=== PATIENT | female | born 1980 | race Caucasian/White ===

== ENCOUNTER → 2019-03-07 | Outpatient (CLI) | payer BC ==
[2019-03-07 16:03] LABS: T4, Free (Free Thyroxine) 1.1 ng/dL (0.80-1.80)
== END | disposition home or self-care (01) ==
LOC: LABWHC1 09:21
PROVIDERS: ATTEND Physician Assistant Medical
DX: M79.604 Pain in right leg (principal); N92.0 Excessive and frequent menstruation with regular cycle
CPT/HCPCS: 36415; 83001; 84439; 84443; 85379

== ENCOUNTER → 2022-11-26 | Outpatient (CLI) | payer BC ==
--- NOTE | 2022-11-29 08:25 | MM ---
Reason for Exam: Screening (asymptomatic). Last screening mammogram was performed 12 month(s) ago. Patient History: Menarche at age 12. Patient has no children. Maternal grandmother had breast cancer, age 40. Maternal aunt had breast cancer, age 40. Last menstrual period: 11/08/2022 Risk Values: Eliane 5 year model risk: 0.7%. NCI Lifetime model risk: 12.0%. Prior Study Comparison: 02/14/2019 Bilateral Screening Mammogram, [facility]. 11/19/2021 Bilateral Screening Mammogram, [facility]. Tissue Density: The breast tissue is heterogeneously dense. This may lower the sensitivity of mammography. Findings: Analyzed By CAD. Asymmetric nodular density 7 cm from the nipple outer right cc view. Additional views are clear of a spot CC view as well as a true lateral view. No suspicious calcifications seen. No masses left breast. Overall Assessment: Incomplete: need additional imaging evaluation, BI-RAD 0 Management: Diagnostic Mammogram of the right breast. A clinical breast exam by your physician is recommended on an annual basis and results should be correlated with mammographic findings. Electronically signed and approved by: Rodolfo Daniels M.D. Radiologis
== END | disposition home or self-care (01) ==
LOC: RADMAMWWP 16:06
PROVIDERS: ATTEND Obstetrics & Gynecology
DX: Z12.31 Encounter for screening mammogram for malignant neoplasm of breast (principal); Z80.3 Family history of malignant neoplasm of breast
CPT/HCPCS: 77063; 77067

== ENCOUNTER → 2022-11-30 | Outpatient (CLI) | payer BC ==
--- NOTE | 2022-11-30 08:56 | MM ---
Reason for Exam: Additional evaluation requested from abnormal screening. Last screening mammogram was performed less than 1 month ago. Patient History: Menarche at age 12. Patient has no children. Maternal grandmother had breast cancer, age 40. Maternal aunt had breast cancer, age 40. Risk Values: Eliane 5 year model risk: 0.7%. NCI Lifetime model risk: 12.0%. Prior Study Comparison: 02/14/2019 Bilateral Screening Mammogram, [facility]. 11/19/2021 Bilateral Screening Mammogram, [facility]. 11/26/2022 Bilateral MG 3D screening mammo w/cad, [facility]. Tissue Density: Right: The breast tissue is heterogeneously dense. This may lower the sensitivity of mammography. Findings: Analyzed By CAD. No distinct new lesion persists on additional views. Overall Assessment: Negative, BI-RAD 1 Management: Screening Mammogram of both breasts in 1 year. A clinical breast exam by your physician is recommended on an annual basis and results should be correlated with mammographic findings. This exam should not preclude additional follow-up of suspicious palpable abnormalities. Results were given to the patient verbally at the time of exam. Electronically signed and approved by: Ed Mendoza M.D.
== END | disposition home or self-care (01) ==
LOC: RADMAMWWP 08:20
PROVIDERS: ATTEND Obstetrics & Gynecology
DX: R92.8 Other abnormal and inconclusive findings on diagnostic imaging of breast (principal); Z80.3 Family history of malignant neoplasm of breast
CPT/HCPCS: 77061; 77065

== ENCOUNTER → 2023-01-19 | Outpatient (CLI) | payer BC ==
[2023-01-19 20:38] LABS: ALT 23 U/L (8-44); AST 18 U/L (13-35); Albumin 4.3 d/dL (3.8-4.9); Albumin/Globulin Ratio 1.65 Ratio (1.60-3.17); Alkaline Phosphatase 60 U/L (41-126); Blood Urea Nitrogen 13.6 mg/dL (9.0-27.0); C Reactive Protein <0.30 mg/dL (0.00-0.80); Calcium 9.8 mg/dL (8.7-10.3); Carbon Dioxide 26.2 mmol/L (21.6-31.8); Chloride 104 mmol/L (96-109); Globulin 2.6 d/dL (1.6-3.3); Glucose 87 mg/dL (70-110); Potassium 4.4 mmol/L (3.5-5.5); Sodium 140 mmol/L (135-145); Total Bilirubin 0.3 mg/dL (0.3-1.2); Total Protein 6.9 d/dL (6.2-8.2)
[2023-01-19 20:53] LABS: Basophils # (A) 0.12 X 10*3/uL (0.00-0.10); Basophils % (A) 1.5 %; Eosinophils # (A) 0.11 X 10*3/uL (0.04-0.35); Eosinophils % (A) 1.4 %; HCT 39.4 % (37.2-46.3); HGB 12.6 d/dL (12.0-15.0); Lymphocytes # (A) 2.21 X 10*3/uL (0.90-5.00); Lymphocytes % (A) 28.4 %; MCH 28.3 pg (27.0-32.0); MCV 88.3 FL (80.0-97.0); Mean Platelet Volume 10.5 FL (9.5-12.2); Monocytes # (A) 0.64 X 10*3/uL (0.20-1.00); Monocytes % (A) 8.2 %; NRBC Per 100 WBC 0 X 10*3/uL (0.00-0.01); Neutrophils # (A) 4.68 X 10*3/uL (1.80-7.70); Neutrophils % (A) 60.2 %; Platelet Count 350 X 10*3/uL (140-440); RBC 4.46 X 10*6/uL (4.10-5.20); RDW 13.1 % (11.5-14.5); WBC 7.78 X 10*3/uL (4.50-10.00)
[2023-01-19 22:29] LABS: Erythrocyte Sedimentation Rate 6 mm/Hr (0-20)
== END | disposition home or self-care (01) ==
LOC: LABWHC1 14:19
PROVIDERS: ATTEND Internal Medicine
DX: L50.9 Urticaria, unspecified (principal)
CPT/HCPCS: 36415; 80053; 83520; 85025; 85652; 86038; 86140; 86160

== ENCOUNTER → 2023-02-03 | Outpatient (CLI) | payer BC | END | disposition home or self-care (01) | LOC: LABWHC1 11:34 | PROVIDERS: ATTEND Internal Medicine | DX: L50.9 Urticaria, unspecified (principal) | CPT/HCPCS: 36415; 84443 ==